=== PATIENT | male | born 1970 | race Asian ===

== ENCOUNTER 2019-04-20 19:07 | Inpatient (IN) | payer OTHER ==
[~2019-04-20] VITALS: Ht 175.3 cm; Wt 71.7 kg
[~2019-04-20 19:07] MED LIST: ALBU18HF2 IH; BUDE6HFA IH; IBUP-2030 PO; MONT10TA24 PO; ONDA4TAB5 PO
[2019-04-20] MEDS ORDERED: IPRATROPIUM BROMIDE (0.02%) 0.5MG/2.5ML NEB HHN STA (19:18)
[2019-04-20] MEDS ORDERED: METHYLPREDNISOLONE SOD SUCC 125 MG/2 ML VIAL IV STA (19:18)
[2019-04-20] MEDS ORDERED: ALBUTEROL (0.083%) 2.5MG/3ML NEB HHN STA (19:18)
[2019-04-20] MEDS ORDERED: MAGNESIUM 2 G PREMIX 50 ML IV ONE (19:30)
[2019-04-20 19:38] LABS: BASOPHILS % 0.4 % (0.0-2.0); EOSINOPHILS % 4.3 % (0.0-5.0); HEMATOCRIT. 52.2 % (42.0-52.0); HEMOGLOBIN. 17.5 g/dL (14.0-18.0); LYMPHOCYTES % 21.2 % (20.0-50.0); MEAN CORPUSCULAR HEMOGLOBIN 27.9 pg (28.0-32.0); MEAN CORPUSCULAR VOLUME 83.2 fL (80.0-94.0); MEAN PLATELET VOLUME 7.7 fl (7.4-10.4); MONOCYTES % 9.2 % (2.0-8.0); NEUTROPHILS % 64.9 % (40.0-76.0); PLATELET 391 x1000/uL (130-400); RED BLOOD CELL COUNT 6.28 mill/uL (4.7-6.1); RED CELL DISTRIBUTION WIDTH 14.7 % (11.6-14.6)
[2019-04-20 19:40] LABS: CHLORIDE 104 mEq/L (98-107)
[2019-04-20] MEDS ORDERED: LEVOFLOXACIN 750MG PREMIX 150 ML IV NR (19:45)
[2019-04-20] MEDS ORDERED: SODIUM CHLORIDE 0.9% 1000ML BAG (SEPSIS BOLUS) IV ONE (19:45)
[2019-04-20] MEDS ORDERED: SODIUM CHLORIDE 0.9% 2,730 ML IV SCH (20:00)
[2019-04-20 20:08] LABS: BG BASE EXCESS -5.3 mmol/L (-2.0-2.0); BG BILEVEL POS AIRWAY PRESSURE 15/5; BG CARBOXYHEMOGLOBIN 0.8 % (0.5-1.5); BG DEOXYHEMOGLOBIN 0.2 % (0.0-5.0); BG FRACTION INSPIRED OXYGEN 50; BG HCO3 ACT 21.2 mmol/L (22.0-26.0); BG METHEMOGLOBIN 0.6 % (0.0-1.5); BG OXYGEN SATURATION 99.8 % (92.0-98.5); BG OXYHEMOGLOBIN 98.4 % (94.0-97.0); BG PCO2 44.5 mmHg (35.0-45.0); BG PH 7.296 (7.350-7.450); BG PO2 353.4 mmHg (75.0-100.0); BG SAMPLE SITE RIGHT RADIAL; BG TOTAL HEMOGLOBIN 16.8 g/dL (12.0-18.0); BG VENT MODE MASK - BIPAP; BG VENT RATE 20 set
[2019-04-20] MEDS ORDERED: CLONIDINE 0.1MG TABLET PO PRN (22:15)
[2019-04-20 23:15] VITALS: BP 156/100
[2019-04-20] MEDS ORDERED: PIPERACILLIN/TAZ 3.375G PREMIX 50 ML IV SCH (23:45)
[2019-04-20] MEDS ORDERED: ONDANSETRON HCL 4MG/2ML INJ IV PRN (23:45)
[2019-04-20] MEDS ORDERED: ACETAMINOPHEN 325MG TABLET PO PRN (23:45)
[2019-04-20] MEDS ORDERED: VANCOMYCIN 1 G PREMIX 200 ML IV SCH (23:45)
[2019-04-21] VITALS (7 sets, daily range): BP systolic 130–150; BP diastolic 81–96
[2019-04-21] MEDS: IPRATROPIUM/ALBUTEROL 0.5-3(2.5)MG/3ML NEB HHN SCH ×6 (00:53→21:49)
[2019-04-21] MEDS ORDERED: VANCOMYCIN 1500MG in DEXTROSE 5% WATER 250ML IV NR (02:00)
[2019-04-21] MEDS: PANTOPRAZOLE 40MG DR TABLET PO SCH ×3 (03:27→21:34)
[2019-04-21] MEDS: DEXT 5%/0.45% NACL KCL 20MEQ/L 1,000 ML IV SCH ×3 (03:27→18:27)
[2019-04-21] MEDS: METHYLPREDNISOLONE SOD SUCC 40 MG/ML VIAL IV SCH ×4 (03:49→21:35)
[2019-04-21] MEDS ORDERED: PIPERACILLIN/TAZ 3.375G PREMIX 50 ML IV SCH (06:00)
[2019-04-21] MEDS: PIPERACILLIN/TAZOBACTAM 3.375 G in DEXT 5% WATER 100 ML IV SCH ×3 (06:24→21:35)
[2019-04-21 07:38] LABS: HEMATOCRIT. 45.6 % (42.0-52.0); MEAN CORPUSCULAR HEMOGLOBIN 27.8 pg (28.0-32.0); MEAN CORPUSCULAR VOLUME 84.1 fL (80.0-94.0); MEAN PLATELET VOLUME 8.1 fl (7.4-10.4); PLATELET 311 x1000/uL (130-400); RED BLOOD CELL COUNT 5.42 mill/uL (4.7-6.1); RED CELL DISTRIBUTION WIDTH 14.7 % (11.6-14.6)
[2019-04-21] MEDS: BUDESONIDE 0.5MG/2ML NEB HHN SCH ×2 (08:06→21:49)
[2019-04-21 08:14] LABS: CHLORIDE 105 mEq/L (98-107)
[2019-04-21] MEDS: ENOXAPARIN 40MG/0.4ML SYR SUBCUT SCH (08:16)
[2019-04-21 08:22] LABS: LDL CHOLESTEROL 67 mg/dL (5-100)
[2019-04-21 08:25] LABS: HDL CHOLESTEROL 77 mg/dL (40-59); T4 FREE 0.98 ng/dL (0.76-1.46)
[2019-04-21] MEDS: VANCOMYCIN 1 G PREMIX 200 ML IV SCH ×2 (09:50→18:27)
[2019-04-21 10:35] LABS: *AMPHETAMINES SCREEN URINE NEGATIVE (NEGATIVE); *BARBITURATES SCREEN URINE NEGATIVE (NEGATIVE); *BENZODIAZEPINES SCREEN URINE NEGATIVE (NEGATIVE); *COCAINE SCREEN URINE NEGATIVE (NEGATIVE); METHADONE URINE SCREEN NEGATIVE (NEGATIVE); OPIATES URINE SCREEN NEGATIVE (NEGATIVE)
[2019-04-21 10:36] LABS: CANNABINOID URINE SCREEN NEGATIVE (NEGATIVE); PHENCYCLIDINE URINE SCREEN NEGATIVE (NEGATIVE)
[2019-04-21 11:16] LABS: BG BASE EXCESS -3.4 mmol/L (-2.0-2.0); BG CARBOXYHEMOGLOBIN 0.5 % (0.5-1.5); BG DEOXYHEMOGLOBIN 3.3 % (0.0-5.0); BG FRACTION INSPIRED OXYGEN 28; BG HCO3 ACT 21.1 mmol/L (22.0-26.0); BG METHEMOGLOBIN 0.6 % (0.0-1.5); BG OXYGEN SATURATION 96.7 % (92.0-98.5); BG OXYHEMOGLOBIN 95.6 % (94.0-97.0); BG PCO2 36.6 mmHg (35.0-45.0); BG PH 7.378 (7.350-7.450); BG SAMPLE SITE RIGHT RADIAL; BG TOTAL HEMOGLOBIN 16.3 g/dL (12.0-18.0); BG VENT MODE NASAL CANNULA
[2019-04-21 11:23] LABS: PLATELET ESTIMATE NORMAL
[2019-04-21] MEDS ORDERED: MONTELUKAST SODIUM 10MG TABLET PO SCH (17:00)
[2019-04-21] MEDS ORDERED: DOCUSATE SODIUM 100MG CAPSULE PO PRN (19:30)
[2019-04-21] MEDS ORDERED: LORAZEPAM 2MG/ML CPJ IV PRN (19:30)
[2019-04-21] MEDS ORDERED: HYDROCODONE/ACETAMINOPHEN 5/325MG TABLET PO PRN (19:30)
[2019-04-21] MEDS: LORATADINE 10MG TABLET PO SCH (21:33)
[2019-04-21] MEDS: DILTIAZEM HCL 30MG TABLET PO SCH (21:34)
[2019-04-22] VITALS (11 sets, daily range): BP systolic 121–149; BP diastolic 69–94
[2019-04-22] MEDS: IPRATROPIUM/ALBUTEROL 0.5-3(2.5)MG/3ML NEB HHN SCH ×5 (02:03→16:00)
[2019-04-22] MEDS: VANCOMYCIN 1 G PREMIX 200 ML IV SCH (03:05)
[2019-04-22] MEDS: METHYLPREDNISOLONE SOD SUCC 40 MG/ML VIAL IV SCH ×2 (03:05→08:29)
[2019-04-22] MEDS: DEXT 5%/0.45% NACL KCL 20MEQ/L 1,000 ML IV SCH ×2 (03:06→10:38)
[2019-04-22 06:10] LABS: HEMATOCRIT. 43.9 % (42.0-52.0); HEMOGLOBIN. 14.9 g/dL (14.0-18.0); MEAN CORPUSCULAR VOLUME 82.7 fL (80.0-94.0); MEAN PLATELET VOLUME 8.3 fl (7.4-10.4); PLATELET 303 x1000/uL (130-400); RED CELL DISTRIBUTION WIDTH 14.2 % (11.6-14.6)
[2019-04-22] MEDS: DILTIAZEM HCL 30MG TABLET PO SCH (06:44)
[2019-04-22] MEDS: PANTOPRAZOLE 40MG DR TABLET PO SCH (06:44)
[2019-04-22] MEDS: PIPERACILLIN/TAZOBACTAM 3.375 G in DEXT 5% WATER 100 ML IV SCH ×2 (06:44→13:22)
[2019-04-22 08:08] LABS: CHLORIDE 105 mEq/L (98-107)
[2019-04-22] MEDS: LORATADINE 10MG TABLET PO SCH (08:29)
[2019-04-22] MEDS: ENOXAPARIN 40MG/0.4ML SYR SUBCUT SCH (08:30)
[2019-04-22] MEDS: BUDESONIDE 0.5MG/2ML NEB HHN SCH (09:00)
[2019-04-22] MEDS ORDERED: LIDOCAINE HCL/PF 1% 2ML VIAL ONE (09:23)
[2019-04-22 10:10] LABS: PLATELET ESTIMATE NORMAL
[2019-04-22 14:28] LABS: BG BASE EXCESS -0.8 mmol/L (-2.0-2.0); BG CARBOXYHEMOGLOBIN 0.3 % (0.5-1.5); BG DEOXYHEMOGLOBIN 4.2 % (0.0-5.0); BG METHEMOGLOBIN 0.3 % (0.0-1.5); BG OXYGEN SATURATION 95.8 % (92.0-98.5); BG OXYHEMOGLOBIN 95.2 % (94.0-97.0); BG PCO2 40.4 mmHg (35.0-45.0); BG PH 7.392 (7.350-7.450); BG PO2 76.8 mmHg (75.0-100.0); BG SAMPLE SITE RIGHT RADIAL; BG TOTAL HEMOGLOBIN 15.6 g/dL (12.0-18.0); BG VENT MODE ROOM AIR
[2019-04-22 16:18] LABS: HEMATOCRIT. 43.7 % (42.0-52.0); HEMOGLOBIN. 14.7 g/dL (14.0-18.0); MEAN CORPUSCULAR HEMOGLOBIN 28.1 pg (28.0-32.0); MEAN CORPUSCULAR VOLUME 83.5 fL (80.0-94.0); MEAN PLATELET VOLUME 7.9 fl (7.4-10.4); PLATELET 308 x1000/uL (130-400); RED BLOOD CELL COUNT 5.24 mill/uL (4.7-6.1); RED CELL DISTRIBUTION WIDTH 14.8 % (11.6-14.6)
[2019-04-22] MEDS ORDERED: VANCOMYCIN 1 G PREMIX 200 ML IV SCH (18:00)
[2019-04-22 20:47] LABS: PLATELET ESTIMATE NORMAL
[2019-04-22] MEDS ORDERED: FAMOTIDINE 20MG TABLET PO SCH (21:00)
[2019-04-22] MEDS ORDERED: METHYLPREDNISOLONE SOD SUCC 40 MG/ML VIAL IV SCH (21:00)
== END 2019-04-22 17:21 | disposition home or self-care (01) | DRG 871 ==
LOC: ER 19:07 → 5EST 21:03 → EDBEDREQTM 21:05 → EDBEDREQ 21:05 → ENRESERV 21:53
PROVIDERS: ADMIT Internal Medicine; ATTEND Internal Medicine
PROC: 5A09357 Assistance with Respiratory Ventilation, Less than 24 Consecutive Hours, Continuous Positive Airway Pressure (ICD-10-PCS; principal; 2019-04-20)
DX: A41.9 Sepsis, unspecified organism (principal); J96.00 Acute respiratory failure, unspecified whether with hypoxia or hypercapnia; J45.901 Unspecified asthma with (acute) exacerbation; I10 Essential (primary) hypertension; T38.0X5A Adverse effect of glucocorticoids and synthetic analogues, initial encounter; J06.9 Acute upper respiratory infection, unspecified; Z79.899 Other long term (current) drug therapy
CPT/HCPCS: 36415; 36600; 71045; 71250; 80048; 80061; 80202; 80305; 82375; 82805; 83605; 83880; 84145; 84439; 84443; 84484; 87804; 93005; 93306; 94640; 94644; 94660; 96365; 99291; J1650; J1956; J2543; J2920; J2930; J3370; J3475; J3490; J7060; J7611; J7620; J7626